=== PATIENT | male | born 1975 | race Caucasian/White ===

== ENCOUNTER 2019-03-08 13:40 | Emergency (ER) | payer OTHER ==
[2019-03-08 13:52] VITALS: PULSE 84; TEMP 97.6; BMI 35.7
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
[2019-03-08] MEDS ORDERED: ACETAMINOPHEN 325 MG TABLET (FP) PO ONE (15:37)
[2019-03-08 17:18] VITALS: BP 122/78
--- NOTE | 2019-03-09 16:38 | EKG ---
Test Reason : Blood Pressure : / mmHG Vent. Rate : 081 BPM Atrial Rate : 081 BPM P-R Int : 184 ms QRS Dur : 108 ms QT Int : 414 ms P-R-T Axes : 044 -29 107 degrees QTc Int : 480 ms NORMAL SINUS RHYTHM ABNORMAL ECG NO PREVIOUS ECGS AVAILABLE Confirmed by TELMA MONTEZ MD ([id number]) on 03/09/2019 4:37:56 PM Referred By: Confirmed By:TELMA MONTEZ MD
== END 2019-03-08 17:18 | disposition home or self-care (01) ==
LOC: JER 13:40
DX: R51 Headache (principal); I10 Essential (primary) hypertension; E11.9 Type 2 diabetes mellitus without complications; E78.00 Pure hypercholesterolemia, unspecified; I34.0 Nonrheumatic mitral (valve) insufficiency; Z88.6 Allergy status to analgesic agent; Z79.4 Long term (current) use of insulin; Z79.01 Long term (current) use of anticoagulants; V43.52XA Car driver injured in collision with other type car in traffic accident, initial encounter; Y93.89 Activity, other specified; Y92.410 Unspecified street and highway as the place of occurrence of the external cause
CPT/HCPCS: 70450-TC; 93005; 93010; 99282-25